=== PATIENT | male | born 1990 | race Caucasian/White ===

== ENCOUNTER 2017-08-07 16:57 | Emergency (ER) | payer OTHER ==
[2017-08-07] MEDS ORDERED: KETOROLAC TROMETHAMINE INJ/PF 30 MG/1 ML SDV IM ONE (18:29)
--- NOTE | 2017-08-07 18:32 | ER Document Report ---
HPI - HPI Pain Level: 3 Notes: Patient is a 27-year-old male with no significant past medical history presents ED complaining of right lateral neck and right shoulder pain status post injury while at work. Patient states that he was maneuvering and he may have twisted wrong causing him to feel a pop in the right trapezius area. Patient states that he has since been able to move his arm without any difficulties aside from discomfort. He has not noticed any bulging areas, bruising, redness, or swelling. The pain does not radiate. He denies any drug allergies. Patient does admit to smoking but denies IV drug use. No other concerns or complaints at this time. Denies any headache, fever, head injury, neck pain, changes in vision/speech/mentation/hearing, URI, sore throat, chest pain, palpitations, syncope, cough, shortness of breath, wheeze, dyspnea, abdominal pain, nausea/ vomiting/diarrhea, urinary retention, dysuria, hematuria, loss of control of bowel or bladder, numbness/tingling, saddle anesthesia, muscle paralysis/ weakness, or rash. - ROS Systems Reviewed and Negative: Yes All other systems reviewed and negative Past Medical History - Social History Smoking Status: Current Every Day Smoker Family History: Reviewed & Not Pertinent Vertical Provider Document - CONSTITUTIONAL Agree With Documented VS: Yes Notes: PHYSICAL EXAMINATION: GENERAL: Well-appearing, well-nourished and in no acute distress. LUNGS: Breath sounds clear to auscultation bilaterally and equal. No wheezes rales or rhonchi. HEART: Regular rate and rhythm without murmurs, rubs, gallops. Neck: FROM. Strength 5+/5. No vertebral point tenderness. No step-offs. No midline tenderness. Spurling negative. Musculoskeletal: UE's b/l: FROM to passive/active. Strength 5+/5. No deficits noted. No bony tenderness of extremities. + tenderness to the rt trapezius w/ o noticeable deformity/bulge, erythema, ecchymosis. N/V intact distal. Back: FROM to passive/active. Strength 5+/5. No vertebral point tenderness, stepoffs, or deformities. No other bony tenderness, erythema, swelling, or ecchymosis. SLR negative b/l. Extremities: No cyanosis, clubbing, or edema b/l. Peripheral pulses 2+. Capillary refill less than 2 seconds. NEUROLOGICAL: Normal speech, normal gait. Normal sensory, motor exams. Reflexes 2+ b/l. PSYCH: Normal mood, normal affect. SKIN: Warm, Dry, normal turgor, no rashes or lesions noted. - RESPIRATORY O2 Sat by Pulse Oximetry: 94 Course - Re-evaluation Re-evalutation: 08/07/17 18:36 Patient is an afebrile, well-hydrated, 27-year-old male who presents the ED with suspected right trapezius strain based on H&P today. Vitals are stable. PE is otherwise unremarkable for any neurovascular compress, obvious tendon/ ligament rupture, obvious fracture/dislocation, septic joint, spinous abscess/ infection, or other systemic emergent condition at this time. Patient only has soft tissue tenderness at this time is able to move his shoulder through range of motion without difficulties with no cervical tenderness. No other labs or imaging warranted at this time based on H&P. Toradol given today. I will send him home with a prescription for naproxen and baclofen. Recheck with your PCM in 3-5 days. Consider consult orthopedics/physical therapy. Return to the ED with any worsening/concerning symptoms otherwise as reviewed discharge. Patient is in agreement. - Vital Signs Vital signs: Temp Pulse Resp BP Pulse Ox 98.7 F 98 20 147/89 H 94 08/07/17 17:02 08/07/17 17:02 08/07/17 17:02 08/07/17 17:02 08/07/17 17:02 Discharge - Discharge Clinical Impression: Strain of right trapezius muscle Qualifiers: Encounter type: initial encounter Qualified Code(s): S46.811A - Strain of other muscles, fascia and tendons at shoulder and upper arm level, right arm, initial encounter Condition: Stable Disposition: HOME, SELF-CARE Instructions: Muscle Relaxers ([facility]), Muscle Strain ([facility]), Exercise Program for the Shoulder ([facility]) Additional Instructions: Rest, Ice, Compression, Elevation Tylenol/ibuprofen as needed Light stretches daily Strength exercises as able Moist heat and massage may help F/u with your PCP in 3-5 days for a recheck Consider consult(s) with Orthopedics/physical therapy for ongoing/worsening symptoms Return to the ED with any worsening symptoms and/or development of fever, headache, chest pain, palpitations, syncope, shortness of breath, trouble breathing, abdominal pain, n/v/d, blood in stool/urine, loss of control of bowel /bladder, urinary retention, muscle weakness/paralysis, saddle anesthesia, numbness/tingling, or other worsening symptoms that are concerning to you. Prescriptions: Baclofen [Baclofen 10 mg Tablet] 5 - 10 mg PO BID PRN #10 tablet PRN Reason: Naproxen 500 mg PO BID PRN #30 tablet PRN Reason: Forms: Elevated Blood Pressure, Smoking Cessation Education, Return to Work Referrals: [facility] [Provider Group] - Follow up as needed
[2017-08-07 19:33] VITALS: BP 152/94
== END 2017-08-07 19:33 | disposition home or self-care (01) ==
LOC: ER 16:57
DX: S29.012A Strain of muscle and tendon of back wall of thorax, initial encounter (principal); X58.XXXA Exposure to other specified factors, initial encounter; M25.511 Pain in right shoulder; M54.2 Cervicalgia; F17.200 Nicotine dependence, unspecified, uncomplicated
CPT/HCPCS: 99283; 96372; J1885